=== PATIENT | female | born 1950 | race American Indian/Alaskan Native ===

== ENCOUNTER 2018-11-07 06:43 | Day surgery (SDC) | payer MEDICARE ==
[2018-11-07 07:20] VITALS: BMI 31.8
[2018-11-07 07:37] VITALS: O2SAT 98
[2018-11-07] MEDS ORDERED: Propofol 10 mg/ml Inj (20 ML) ONE ×2 (08:41→09:22)
[2018-11-07] MEDS ORDERED: Lactated Ringer's 1,000 ML IV ONE ×2 (08:50)
[2018-11-07 09:49] VITALS: TEMP 97.7
[2018-11-07 10:22] VITALS: RESP 18
[2018-11-07 10:24] VITALS: BP 132/75; PULSE 73
== END 2018-11-07 12:11 | disposition home or self-care (01) ==
LOC: C.ENDO 06:43
PROVIDERS: ATTEND Internal Medicine Gastroenterology
DX: Z12.11 Encounter for screening for malignant neoplasm of colon (principal); D12.2 Benign neoplasm of ascending colon; D12.7 Benign neoplasm of rectosigmoid junction; K64.8 Other hemorrhoids
CPT/HCPCS: 45380; 82948; 88305; J2001; J2704; J7120

== ENCOUNTER 2018-12-06 13:14 | Observation (INO) | payer MEDICARE ==
[2018-12-06 13:14] VITALS: BMI 31.8
--- NOTE | 2018-12-06 14:07 | C.PDOC ---
History Of Present Illness 68 y/o F p/w chest pain x 1 month, worse with exertion, gradually worsening and lasting longer at a time. Reports had outpatient stress test and EKG which were abnormal. Denies fever, cough, dyspnea. Reports associated palpitations. PMD [place] Time Seen by Provider: 12/06/18 14:04 Chief Complaint (Nursing): Chest Pain Past Medical History Vital Signs: Last Vital Signs Temp 98.4 F 12/06/18 13:22 Pulse 91 H 12/06/18 13:22 Resp 18 12/06/18 13:22 BP 197/91 H 12/06/18 13:22 Pulse Ox 97 12/06/18 13:22 - Medical History PMH: Arthritis, Asthma, HTN Denies: Chronic Kidney Disease Surgical History: Endoscopy Family History: States: No Known Family Hx - Social History Hx Alcohol Use: No Hx Substance Use: No - Immunization History Hx Tetanus Toxoid Vaccination: No Hx Influenza Vaccination: No Hx Pneumococcal Vaccination: No Review Of Systems Except As Marked, All Systems Reviewed And Found Negative. Constitutional: Negative for: Fever Respiratory: Negative for: Shortness of Breath Physical Exam - Physical Exam Additional Physical Exam Comments: Constitutional: No acute distress. Head: Normocephalic. Atraumatic. Eyes: PERRL. ENT: Moist mucous membranes. Neck: Supple. Cardiovascular: Regular rate. Radial pulse 2+ bilaterally. Chest: No tenderness. Respiratory: Clear to auscultation bilaterally. GI: Soft. Nontender. Nondistended. Back: No CVA tenderness. Musculoskeletal: No tenderness or swelling of extremities. Skin: No rash. Neurologic: Alert, no focal deficit. ED Course And Treatment - Laboratory Results Result Diagrams: 12/06/18 14:57 12/06/18 14:57 O2 Sat by Pulse Oximetry: 97 Pulse Ox Interpretation: Normal Medical Decision Making Medical Decision Making: EKG: Normal sinus rhythm at 94 bpm, T wave inversions in the anterior, lateral and inferior leads, No ST elevations Patient allergic to aspirin. CXR No active pulmonary disease. Dr. Day accepts patient to hospitalist service. Disposition - Disposition Disposition: HOSPITALIZED Disposition Time: 16:00 Condition: FAIR - POA Core Measure Indicators: Chest Pain - Clinical Impression Clinical Impression: Chest pain
[2018-12-06 15:00] LABS: BASO # 0.1 K/uL (0.0-0.2); BASO % 0.8 % (0.0-2.0); EOS # 0.1 K/uL (0.0-0.7); EOS % 0.9 % (0.0-4.0); HEMOGLOBIN 11.5 g/dL (11.0-16.0); LYMPH # 2.3 K/uL (1.0-4.3); LYMPH % 34.6 % (20.0-40.0); MEAN CELL VOLUME 85.2 fL (81.0-99.0); MEAN CORPUSCULAR HEMOGLOBIN 26.9 pg (27.0-31.0); MEAN CORPUSCULAR HGB CONC 31.5 g/dL (33.0-37.0); MEAN PLATELET VOLUME 9.6 fL (7.2-11.7); MONO # 0.4 K/uL (0.0-0.8); MONO % 5.5 % (0.0-10.0); NEUT # 3.8 K/uL (1.8-7.0); NEUT % 58.2 % (50.0-75.0); NRBC % 0.1 % (0.0-2.0); RBC 4.27 Mil/uL (3.80-5.20); RED CELL DISTRIBUTION WIDTH 14.2 % (11.5-14.5); WHITE BLOOD COUNT 6.6 K/uL (4.8-10.8)
[2018-12-06 15:12] LABS: ALB/GLOB RATIO 1.5 (1.0-2.1); ALBUMIN 4.4 g/dL (3.5-5.0); ALT/SGPT 44 U/L (9-52); AST/SGOT 51 U/L (14-36); BLOOD UREA NITROGEN 10 mg/dL (7-17); CALCIUM 9.1 mg/dl (8.6-10.4); GFR NON-AFRICAN AMERICAN > 60
[2018-12-06 15:25] LABS: CK-MB 1.44 ng/mL (0.0-3.38)
--- NOTE | 2018-12-06 15:29 | RAD ---
Date of service: 12/06/2018 HISTORY: angina COMPARISON: No prior. FINDINGS: LUNGS: The lungs are well inflated and clear. PLEURA: No pleural effusions or pneumothorax. CARDIOVASCULAR: The heart is normal in size. No aortic atherosclerotic calcifications present. OSSEOUS STRUCTURES: Within normal limits for the patient's age. VISUALIZED UPPER ABDOMEN: Normal. OTHER FINDINGS: None. IMPRESSION: No active pulmonary disease.
--- NOTE | 2018-12-06 15:58 | CP.PCM.HP ---
<Graham Rice - Last Filed: 12/06/18 17:14> History of Present Illness - History of Present Illness History of Present Illness: PGY-1 History and Physical [address]. Day Patient is a 68 year old female with past medical history of HTN, DM, arthritis presenting to ED from Dr. Cooney's office with chest pain that has been gradually worsening over the course of 1 month. Chest pain comes and goes, worsens with exertion. Patient states it begins in the R axillary region, worsens and radiat es up with exertion, eventually traveling to chest where she feels substernal pressure. Sometimes, there is pressure sensation up to neck as well. Of note, patient states she has had outpatient cardiac workup with Dr. Cooney this past month including EKG, echo, and pharm stress test which were abnormal. She was instructed by Dr. Cooney to come to the ED for further care. She endorses substernal chest pressure currently that is mild, in no acute distress. She also endorses headache and has history of lightheadedess and pre-syncope but denies any falls or trauma. No fevers/chills, acute sob, cough, abdominal pain, n/v/d/c. 12 pt ROS reviewed and otherwise negative. PMHx: HTN, DM, arthritis PSHx: cardiac workup outpatient--pharm stress test, echo abnormal; colonoscopy with polyp removal (10/2017), R lipoma removal, carpal tunnel surgery R wrist Allergies: ASA (hives), PCN (hives) Home Meds: Losartan, metformin, 2nd DM med she cannot recall Social Hx: denies alcohol, tobacco, illicit drug use. Lives with daughter in apartment unit. Family Hx: Mother-HTN; Father-cancer PMD: Dr. Holland Cardio: Dr. Cooney Present on Admission - Present on Admission Any Indicators Present on Admission: No Review of Systems - Review of Systems All systems: reviewed and no additional remarkable complaints except Review of Systems: as per HPI Past Patient History - Past Medical History & Family History Past Medical History?: Yes - Past Social History Smoking Status: Never Smoked - CARDIAC Hx Hypertension: Yes - PULMONARY Hx Asthma: Yes - NEUROLOGICAL Hx Neurological Disorder: No - HEENT Hx HEENT Problems: Yes Hx Cataracts: Yes - RENAL Hx Chronic Kidney Disease: No - ENDOCRINE/METABOLIC Hx Endocrine Disorders: Yes Hx Diabetes Mellitus Type 2: Yes - HEMATOLOGICAL/ONCOLOGICAL Hx Blood Disorders: Yes Hx Cancer: Yes (OVARIAN ) Other/Comment: LYMPHOMA - INTEGUMENTARY Hx Dermatological Problems: No - MUSCULOSKELETAL/RHEUMATOLOGICAL Hx Arthritis: Yes - GASTROINTESTINAL Hx Gastrointestinal Disorders: Yes Hx Ulcer: Yes - GENITOURINARY/GYNECOLOGICAL Hx Genitourinary Disorders: No - PSYCHIATRIC Hx Substance Use: No - SURGICAL HISTORY Hx Surgeries: Yes Hx Hysterectomy: Yes Other/Comment: LUMPECTOMY RT BREAST, CARPAL TUNNEL ,LYMPHOMA RT HAND. ovarian cancer removed - ANESTHESIA Hx Anesthesia: Yes Hx Anesthesia Reactions: No Hx Malignant Hyperthermia: No Meds Allergies/Adverse Reactions: Allergies Allergy/AdvReac Type Severity Reaction Status Date / Time aspirin Allergy RASH Verified 12/06/18 13:26 FISH Allergy Verified 12/06/18 13:26 peas Allergy Verified 12/06/18 13:26 Penicillins Allergy REDNESS Verified 12/06/18 13:26 pineapple Allergy Verified 12/06/18 13:26 shellfish derived Allergy Verified 12/06/18 13:26 Physical Exam - Constitutional Appears: Non-toxic, No Acute Distress - Head Exam Head Exam: ATRAUMATIC, NORMAL INSPECTION, NORMOCEPHALIC - Eye Exam Eye Exam: EOMI, Normal appearance, PERRL Pupil Exam: NORMAL ACCOMODATION - ENT Exam ENT Exam: Mucous Membranes Moist, Normal Exam - Neck Exam Neck exam: Positive for: Full Rom, Normal Inspection. Negative for: Tenderness - Respiratory Exam Respiratory Exam: Clear to Auscultation Bilateral, NORMAL BREATHING PATTERN. absent: Accessory Muscle Use, Rales, Rhonchi, Wheezes, Respiratory Distress, Stridor - Cardiovascular Exam Cardiovascular Exam: Tachycardia, +S1, +S2 - GI/Abdominal Exam GI & Abdominal Exam: Normal Bowel Sounds, Soft. absent: Distended, Firm, Gua rding, Rebound, Rigid, Tenderness - Extremities Exam Extremities exam: Positive for: normal capillary refill, normal inspection, pedal pulses present. Negative for: calf tenderness, pedal edema - Back Exam Back exam: NORMAL INSPECTION - Neurological Exam Neurological exam: Alert, Oriented x3 - Psychiatric Exam Psychiatric exam: Anxious, Normal Affect - Skin Skin Exam: Dry, Intact, Normal Color, Warm Results - Vital Signs Recent Vital Signs: Last Vital Signs Temp 98.4 F 12/06/18 13:22 Pulse 91 H 12/06/18 13:22 Resp 18 12/06/18 13:22 BP 197/91 H 12/06/18 13:22 Pulse Ox 97 12/06/18 15:29 - Labs Result Diagrams: 12/06/18 14:57 12/06/18 14:57 Labs: Laboratory Results - last 24 hr 12/06/18 12/06/18 14:57 14:57 WBC 6.6 RBC 4.27 Hgb 11.5 Hct 36.4 MCV 85.2 MCH 26.9 L MCHC 31.5 L RDW 14.2 Plt Count 302 MPV 9.6 Neut % (Auto) 58.2 Lymph % (Auto) 34.6 [place] % (Auto) 5.5 Eos % (Auto) 0.9 Baso % (Auto) 0.8 Neut # (Auto) 3.8 Lymph # (Auto) 2.3 [place] # (Auto) 0.4 Eos # (Auto) 0.1 Baso # (Auto) 0.1 Sodium 140 Potassium 3.3 L Chloride 104 Carbon Dioxide 28 Anion Gap 11 BUN 10 Creatinine 0.6 L Est GFR ( Amer) > 60 Est GFR (Non-Af Amer) > 60 Random Glucose 88 Calcium 9.1 Total Bilirubin 0.4 AST 51 H ALT 44 Alkaline Phosphatase 73 Total Creatine Kinase 251 H CK-MB (Mass) 1.44 Troponin I < 0.0120 Total Protein 7.3 Albumin 4.4 Globulin 2.9 Albumin/Globulin Ratio 1.5 Assessment & Plan - Assessment and Plan (Free Text) Assessment: 68 year old female with pmhx of HTN, DM, recent abnormal outpatient cardiac workup brought to ED from Dr. Cooney's office for gradual worsening chest pain, r/o ACS. Plan: Stable angina Chest pain r/o ACS -trop x1 negative -f/u HANNAH panel -EKG: NSR 96 bpm with T wave inversions in inferior, anterolateral leads -f/u repeat EKG -lipid panel -thyroid panel -A1C HTN -BP 160/86 -Losartan 25 mg PO daily -continue to monitor DM -hold home meds -f/u A1C -ISS medium -accuchecks ACHS -hypoglycemic protocol PPx, Diet, Disposition -DVT ppx: scds -GI ppx: not indicated -Diet: HHD, NPO after MN for cardiac cath -PT on board Case discussed with Dr. Barb Rice DO, PGY-1 <Eliseo Day - Last Filed: 12/06/18 19:07> Results - Vital Signs Recent Vital Signs: Last Vital Signs Temp 98.2 F 12/06/18 17:45 Pulse 85 12/06/18 17:45 Resp 20 12/06/18 17:45 BP 185/90 H 12/06/18 17:45 Pulse Ox 96 12/06/18 17:45 - Labs Result Diagrams: 12/06/18 14:57 12/06/18 14:57 Labs: Laboratory Results - last 24 hr 12/06/18 12/06/18 12/06/18 14:57 14:57 16:50 WBC 6.6 RBC 4.27 Hgb 11.5 Hct 36.4 MCV 85.2 MCH 26.9 L MCHC 31.5 L RDW 14.2 Plt Count 302 MPV 9.6 Neut % (Auto) 58.2 Lymph % (Auto) 34.6 [place] % (Auto) 5.5 Eos % (Auto) 0.9 Baso % (Auto) 0.8 Neut # (Auto) 3.8 Lymph # (Auto) 2.3 [place] # (Auto) 0.4 Eos # (Auto) 0.1 Baso # (Auto) 0.1 Sodium 140 Potassium 3.3 L Chloride 104 Carbon Dioxide 28 Anion Gap 11 BUN 10 Creatinine 0.6 L Est GFR ( Amer) > 60 Est GFR (Non-Af Amer) > 60 Random Glucose 88 Calcium 9.1 Total Bilirubin 0.4 AST 51 H ALT 44 Alkaline Phosphatase 73 Total Creatine Kinase 251 H 232 H CK-MB (Mass) 1.44 1.27 Troponin I < 0.0120 < 0.0120 Total Protein 7.3 Albumin 4.4 Globulin 2.9 Albumin/Globulin Ratio 1.5 Attending/Attestation - Attestation I have personally seen and examined this patient.: Yes I have fully participated in the care of the patient.: Yes I have reviewed all pertinent clinical information: Yes Notes (Text): Patient seen and examined with the resident, agree with above. Stable angina with abnormal outpatient pharmacological stress test and thus transferred from Dr Cooney's office for admission and potential cardiac cath Negative trop. EKG changes with TWI in the lateral leads Will continue with medical management as above. Allergic to ASA (hives) Plavix/statin/arb for now. Further recommendations as per Cardio.
[2018-12-06] MEDS ORDERED: Potassium Chloride 20 mEq ER Tab PO ONE ×2 (16:42→16:45)
[2018-12-06] MEDS ORDERED: Dextrose 50% SYRINGE Inj (50 ml) IV PRN (17:02)
[2018-12-06] MEDS ORDERED: Glucagon Recombinant 1 mg Inj IM PRN (17:02)
[2018-12-06 17:23] LABS: CK-MB 1.27 ng/mL (0.0-3.38)
[2018-12-06] MEDS: (Novolin R) Insulin Human Regular 100 units/ml vial SC SCH (22:22)
[2018-12-07 06:49] LABS: BASO % 0.4 % (0.0-2.0); EOS # 0.1 K/uL (0.0-0.7); EOS % 1.6 % (0.0-4.0); LYMPH # 1.7 K/uL (1.0-4.3); LYMPH % 35.8 % (20.0-40.0); MEAN CELL VOLUME 85.8 fL (81.0-99.0); MEAN CORPUSCULAR HEMOGLOBIN 27.5 pg (27.0-31.0); MEAN PLATELET VOLUME 9.9 fL (7.2-11.7); MONO # 0.3 K/uL (0.0-0.8); MONO % 6.5 % (0.0-10.0); NEUT # 2.7 K/uL (1.8-7.0); NEUT % 55.7 % (50.0-75.0); RBC 4.37 Mil/uL (3.80-5.20); RED CELL DISTRIBUTION WIDTH 14.5 % (11.5-14.5); WHITE BLOOD COUNT 4.9 K/uL (4.8-10.8)
[2018-12-07 07:04] LABS: ALB/GLOB RATIO 1.5 (1.0-2.1); ALT/SGPT 57 U/L (9-52); AST/SGOT 58 U/L (14-36); BLOOD UREA NITROGEN 8 mg/dL (7-17); CALCIUM 8.8 mg/dl (8.6-10.4); GFR NON-AFRICAN AMERICAN > 60
[2018-12-07 07:14] LABS: CK-MB 0.73 ng/mL (0.0-3.38)
[2018-12-07] MEDS: (Novolin R) Insulin Human Regular 100 units/ml vial SC SCH ×4 (07:36→21:54)
[2018-12-07] MEDS: Magnesium Sulfate 1 gm in D5W 1 GM/100 ML BAG IVPB SCH ×2 (11:20→12:07)
--- NOTE | 2018-12-07 14:22 | CP.PCM.PN ---
<Ortiz Carballo - Last Filed: 12/07/18 14:22> Subjective - Date & Time of Evaluation Date of Evaluation: 12/07/18 Time of Evaluation: 14:00 - Subjective Subjective: Progress note. Attending: Dr. Kuhn Pt seen and examined at bedside. No acute distress. No fevers, chills, vomiting, diarrhea. Chest pain present but better. Possible cath today or tomorrow. Objective - Vital Signs/Intake and Output Vital Signs (last 24 hours): Temp Pulse Resp BP Pulse Ox 98.0 F 73 20 178/92 H 97 12/07/18 07:00 12/07/18 11:58 12/07/18 07:00 12/07/18 07:00 12/07/18 07:00 Intake and Output: 12/07/18 12/07/18 06:59 18:59 Intake Total 0 Balance 0 - Medications Medications: Current Medications Acetaminophen (Tylenol 325mg Tab) 650 mg PO Q6 PRN PRN Reason: Headache Carvedilol (Coreg) 6.25 mg PO BID [facility] Clopidogrel Bisulfate (Plavix) 75 mg PO DAILY [facility] Last Admin: 12/07/18 09:13 Dose: 75 mg Dextrose (Dextrose 50% Inj) 0 ml IV STAT PRN; Protocol PRN Reason: Hypoglycemia Protocol Dextrose (Glutose 15) 0 gm PO ONCE PRN; Protocol PRN Reason: Hypoglycemia Protocol Glucagon (Glucagen Diagnostic Kit) 0 mg IM STAT PRN; Protocol PRN Reason: Hypoglycemia Protocol Dextrose (Dextrose 5% In Water 1000 Ml) 1,000 mls @ 0 mls/hr IV .Q0M PRN; Protocol PRN Reason: Hypoglycemia Protocol Insulin Human Regular (Novolin R) 0 unit SC ACHS [facility]; Protocol Last Admin: 12/07/18 11:33 Dose: Not Given Losartan Potassium (Cozaar) 50 mg PO DAILY [facility] Last Admin: 12/07/18 11:20 Dose: 50 mg Rosuvastatin Calcium (Crestor) 10 mg PO HS [facility] Last Admin: 12/06/18 21:54 Dose: 10 mg - Labs Labs: 12/07/18 06:46 12/07/18 06:46 - Constitutional Appears: Non-toxic, No Acute Distress - Head Exam Head Exam: ATRAUMATIC, NORMAL INSPECTION, NORMOCEPHALIC - Eye Exam Eye Exam: EOMI - ENT Exam ENT Exam: Mucous Membranes Moist - Neck Exam Neck Exam: Full ROM, Normal Inspection - Respiratory Exam Respiratory Exam: absent: Respiratory Distress - Cardiovascular Exam Cardiovascular Exam: +S1, +S2 - GI/Abdominal Exam GI & Abdominal Exam: Soft, Normal Bowel Sounds. absent: Tenderness - Extremities Exam Extremities Exam: Full ROM, Normal Inspection - Neurological Exam Neurological Exam: Alert, Awake, Oriented x3 - Psychiatric Exam Psychiatric exam: Normal Affect, Normal Mood - Skin Skin Exam: Dry, Intact, Normal Color, Warm Assessment and Plan - Assessment and Plan (Free Text) Assessment: This is a 68 year old female with past medical hx of HTN, DM, recent abnormal outpatient cardiac workup sent into ER from Dr. Cooney's office for gradual worsening chest pain, r/o ACS. Unstable angina/ Chest pain r/o ACS -trop negative -EKG: NSR 96 bpm with T wave inversions in inferior, anterolateral leads -f/u repeat EKG -lipid panel -thyroid panel -A1C -add coreg bid -cardiology consult. Dr. Cooney. recs appreciated. HTN -Losartan 25 mg PO daily>>> increased to 50 mg daily -continue to monitor DM -hold home meds -f/u A1C -ISS medium -accuchecks ACHS -hypoglycemic protocol GI/DVT ppx -DVT ppx: scds -GI ppx: not indicated -PT on board Dispo: will discuss with Dr. Cooney, plans for possible cardiac cath discussed with Dr. Kuhn <Jose Kuhn - Last Filed: 12/08/18 07:10> Objective - Vital Signs/Intake and Output Vital Signs (last 24 hours): Temp Pulse Resp BP Pulse Ox 98.1 F 88 20 147/83 95 12/07/18 23:00 12/07/18 23:35 12/07/18 23:00 12/07/18 23:00 12/08/18 04:00 - Medications Medications: Current Medications Acetaminophen (Tylenol 325mg Tab) 650 mg PO Q6 PRN PRN Reason: Headache Carvedilol (Coreg) 6.25 mg PO BID [facility] Last Admin: 12/07/18 17:45 Dose: 6.25 mg Clopidogrel Bisulfate (Plavix) 75 mg PO DAILY [facility] Last Admin: 12/07/18 09:13 Dose: 75 mg Dextrose (Dextrose 50% Inj) 0 ml IV STAT PRN; Protocol PRN Reason: Hypoglycemia Protocol Dextrose (Glutose 15) 0 gm PO ONCE PRN; Protocol PRN Reason: Hypoglycemia Protocol Glucagon (Glucagen Diagnostic Kit) 0 mg IM STAT PRN; Protocol PRN Reason: Hypoglycemia Protocol Dextrose (Dextrose 5% In Water 1000 Ml) 1,000 mls @ 0 mls/hr IV .Q0M PRN; Protocol PRN Reason: Hypoglycemia Protocol Insulin Human Regular (Novolin R) 0 unit SC ACHS [facility]; Protocol Last Admin: 12/07/18 21:54 Dose: Not Given Losartan Potassium (Cozaar) 50 mg PO DAILY [facility] Last Admin: 12/07/18 11:20 Dose: 50 mg Rosuvastatin Calcium (Crestor) 10 mg PO HS [facility] Last Admin: 12/07/18 21:46 Dose: 10 mg - Labs Labs: 12/07/18 06:46 12/07/18 06:46 Attending/Attestation - Attestation I have personally seen and examined this patient.: Yes I have fully participated in the care of the patient.: Yes I have reviewed all pertinent clinical information, including history, physical exam and plan: Yes Notes (Text): Medical attending: Patient was seen and examined by me with the medical residents Patient was not in any acute distress At this moment we are pending further evaluation by cardiology as it appears she may need cardiac catherization. When we saw her, her symptoms had abated. Jose Kuhn
--- NOTE | 2018-12-07 20:54 | CP.PCM.CON ---
History of Present Illness - History of Present Illness History of Present Illness: CC: Unstable angina Patient is a 68 year old female with past medical history of HTN, DM, arthritis presenting to ED from my office with chest pain that has been gradually worsening over the course of 1 month. Chest pain comes and goes, worsens with exertion. Patient states it begins in the R axillary region, worsens and radiates up with exertion, eventually traveling to chest where she feels substernal pressure. Sometimes, there is pressure sensation up to neck as well. Of note, patient states she has had outpatient cardiac workup with me this past month including EKG, echo, and pharm stress test which were abnormal. She was i nstructed by me to come to the ED for further care. She endorses substernal chest pressure currently that is mild, in no acute distress. She also endorses headache and has history of lightheadedess and pre-syncope but denies any falls or trauma. No fevers/chills, acute sob, cough, abdominal pain, n/v/d/c. 12 pt ROS reviewed and otherwise negative. PMHx: HTN, DM, arthritis PSHx: cardiac workup outpatient--pharm stress test, echo abnormal; colonoscopy with polyp removal (10/2017), R lipoma removal, carpal tunnel surgery R wrist Allergies: ASA (hives), PCN (hives) Home Meds: Losartan, metformin, 2nd DM med she cannot recall Social Hx: denies alcohol, tobacco, illicit drug use. Lives with daughter in apartment unit. Family Hx: Mother-HTN; Father-cancer PMD: Dr. Holland Present on Admission - Present on Admission Any Indicators Present on Admission: No Review of Systems - Review of Systems All systems: reviewed and no additional remarkable complaints except Review of Systems: as per HPI Physical Exam - Constitutional Appears: Non-toxic, No Acute Distress - Head Exam Head Exam: ATRAUMATIC, NORMAL INSPECTION, NORMOCEPHALIC - Eye Exam Eye Exam: EOMI, Normal appearance, PERRL Pupil Exam: NORMAL ACCOMODATION - ENT Exam ENT Exam: Mucous Membranes Moist, Normal Exam - Neck Exam Neck exam: Positive for: Full Rom, Normal Inspection. Negative for: Tenderness - Respiratory Exam Respiratory Exam: Clear to Auscultation Bilateral, NORMAL BREATHING PATTERN. absent: Accessory Muscle Use, Rales, Rhonchi, Wheezes, Respiratory Distress, Stridor - Cardiovascular Exam Cardiovascular Exam: Tachycardia, +S1, +S2 - GI/Abdominal Exam GI & Abdominal Exam: Normal Bowel Sounds, Soft. absent: Distended, Firm, Guarding, Rebound, Rigid, Tenderness - Extremities Exam Extremities exam: Positive for: normal capillary refill, normal inspection, pedal pulses present. Negative for: calf tenderness, pedal edema - Back Exam Back exam: NORMAL INSPECTION - Neurological Exam Neurological exam: Alert, Oriented x3 - Psychiatric Exam Psychiatric exam: Anxious, Normal Affect - Skin Skin Exam: Dry, Intact, Normal Color, Warm Assessment & Plan - Assessment and Plan (Free Text) Assessment: 68 year old female with pmhx of HTN, DM, recent abnormal outpatient cardiac workup brought to ED from Dr. Cooney's office for gradual worsening chest pain, r/o ACS. Plan: Stable angina Chest pain r/o ACS -trop x1 negative -f/u HANNAH panel -EKG: NSR 96 bpm with T wave inversions in inferior, anterolateral leads -f/u repeat EKG -lipid panel -thyroid panel -A1C Cardiac cath Sunday 7am HTN -BP 160/86 -Losartan 25 mg PO daily -continue to monitor DM -hold home meds -f/u A1C -ISS medium -accuchecks ACHS -hypoglycemic protocol PPx, Diet, Disposition -DVT ppx: scds -Diet: HHD, -PT on board Past Patient History - Past Medical History & Family History Past Medical History?: Yes - Past Social History Smoking Status: Never Smoked - CARDIAC Hx Hypertension: Yes - PULMONARY Hx Asthma: Yes - NEUROLOGICAL Hx Neurological Disorder: No - HEENT Hx HEENT Problems: Yes Hx Cataracts: Yes - RENAL Hx Chronic Kidney Disease: No - ENDOCRINE/METABOLIC Hx Endocrine Disorders: Yes Hx Diabetes Mellitus Type 2: Yes - HEMATOLOGICAL/ONCOLOGICAL Hx Blood Disorders: Yes Hx Cancer: Yes (OVARIAN ) Other/Comment: LYMPHOMA - INTEGUMENTARY Hx Dermatological Problems: No - MUSCULOSKELETAL/RHEUMATOLOGICAL Hx Arthritis: Yes - GASTROINTESTINAL Hx Gastrointestinal Disorders: Yes Hx Ulcer: Yes - GENITOURINARY/GYNECOLOGICAL Hx Genitourinary Disorders: No - PSYCHIATRIC Hx Substance Use: No - SURGICAL HISTORY Hx Surgeries: Yes Hx Hysterectomy: Yes Other/Comment: LUMPECTOMY RT BREAST, CARPAL TUNNEL ,LYMPHOMA RT HAND. ovarian cancer removed - ANESTHESIA Hx Anesthesia: Yes Hx Anesthesia Reactions: No Hx Malignant Hyperthermia: No Meds Allergies/Adverse Reactions: Allergies Allergy/AdvReac Type Severity Reaction Status Date / Time aspirin Allergy RASH Verified 12/06/18 13:26 FISH Allergy Verified 12/06/18 13:26 peas Allergy Verified 12/06/18 13:26 Penicillins Allergy REDNESS Verified 12/06/18 13:26 pineapple Allergy Verified 12/06/18 13:26 shellfish derived Allergy Verified 12/06/18 13:26 - Medications Medications: Current Medications Acetaminophen (Tylenol 325mg Tab) 650 mg PO Q6 PRN PRN Reason: Headache Carvedilol (Coreg) 6.25 mg PO BID [facility] Last Admin: 12/07/18 17:45 Dose: 6.25 mg Clopidogrel Bisulfate (Plavix) 75 mg PO DAILY [facility] Last Admin: 12/07/18 09:13 Dose: 75 mg Dextrose (Dextrose 50% Inj) 0 ml IV STAT PRN; Protocol PRN Reason: Hypoglycemia Protocol Dextrose (Glutose 15) 0 gm PO ONCE PRN; Protocol PRN Reason: Hypoglycemia Protocol Glucagon (Glucagen Diagnostic Kit) 0 mg IM STAT PRN; Protocol PRN Reason: Hypoglycemia Protocol Dextrose (Dextrose 5% In Water 1000 Ml) 1,000 mls @ 0 mls/hr IV .Q0M PRN; Protocol PRN Reason: Hypoglycemia Protocol Insulin Human Regular (Novolin R) 0 unit SC [facility]; Protocol Last Admin: 12/07/18 17:17 Dose: Not Given Losartan Potassium (Cozaar) 50 mg PO DAILY [facility] Last Admin: 12/07/18 11:20 Dose: 50 mg Rosuvastatin Calcium (Crestor) 10 mg PO [facility] Last Admin: 12/06/18 21:54 Dose: 10 mg Results - Vital Signs Recent Vital Signs: Last Vital Signs Temp 98.2 F 12/07/18 15:00 Pulse 90 12/07/18 16:00 Resp 20 12/07/18 15:00 BP 173/84 H 12/07/18 15:00 Pulse Ox 95 12/07/18 15:00 - Labs Result Diagrams: 12/07/18 06:46 12/07/18 06:46 Labs: Laboratory Results - last 24 hr 12/06/18 12/06/18 12/06/18 20:59 22:13 22:13 WBC RBC Hgb Hct MCV MCH MCHC RDW Plt Count MPV Neut % (Auto) Lymph % (Auto) Falls % (Auto) Eos % (Auto) Baso % (Auto) Neut # (Auto) Lymph # (Auto) Falls # (Auto) Eos # (Auto) Baso # (Auto) Sodium Potassium Chloride Carbon Dioxide Anion Gap BUN Creatinine Est GFR ( Amer) Est GFR (Non-Af Amer) POC Glucose (mg/dL) 145 H Random Glucose Hemoglobin A1c Calcium Phosphorus Magnesium Total Bilirubin AST ALT Alkaline Phosphatase Total Creatine Kinase 222 H CK-MB (Mass) 1.00 Troponin I < 0.0120 Total Protein Albumin Globulin Albumin/Globulin Ratio Triglycerides 216 H Cholesterol 123 LDL Cholesterol Direct 85 HDL Cholesterol 29 L Free T4 TSH 3rd Generation 5.11 H 12/06/18 12/06/18 12/07/18 22:13 22:17 06:23 WBC RBC Hgb Hct MCV MCH MCHC RDW Plt Count MPV Neut % (Auto) Lymph % (Auto) Falls % (Auto) Eos % (Auto) Baso % (Auto) Neut # (Auto) Lymph # (Auto) Falls # (Auto) Eos # (Auto) Baso # (Auto) Sodium Potassium Chloride Carbon Dioxide Anion Gap BUN Creatinine Est GFR ( Amer) Est GFR (Non-Af Amer) POC Glucose (mg/dL) 193 H Random Glucose Hemoglobin A1c 7.4 H Calcium Phosphorus Magnesium Total Bilirubin AST ALT Alkaline Phosphatase Total Creatine Kinase CK-MB (Mass) Troponin I Total Protein Albumin Globulin Albumin/Globulin Ratio Triglycerides Cholesterol LDL Cholesterol Direct HDL Cholesterol Free T4 1.08 TSH 3rd Generation 12/07/18 12/07/18 12/07/18 06:46 06:46 11:00 WBC 4.9 RBC 4.37 Hgb 12.0 Hct 37.5 MCV 85.8 MCH 27.5 MCHC 32.0 L RDW 14.5 Plt Count 271 MPV 9.9 Neut % (Auto) 55.7 Lymph % (Auto) 35.8 Falls % (Auto) 6.5 Eos % (Auto) 1.6 Baso % (Auto) 0.4 Neut # (Auto) 2.7 Lymph # (Auto) 1.7 Falls # (Auto) 0.3 Eos # (Auto) 0.1 Baso # (Auto) 0.0 Sodium 139 Potassium 3.2 L Chloride 105 Carbon Dioxide 27 Anion Gap 11 BUN 8 Creatinine 0.6 L Est GFR ( Amer) > 60 Est GFR (Non-Af Amer) > 60 POC Glucose (mg/dL) 142 H Random Glucose 182 H D Hemoglobin A1c Calcium 8.8 Phosphorus 4.3 Magnesium 1.5 L Total Bilirubin 0.5 AST 58 H ALT 57 H D Alkaline Phosphatase 73 Total Creatine Kinase 186 H CK-MB (Mass) 0.73 Troponin I < 0.0120 Total Protein 6.7 Albumin 4.0 Globulin 2.7 Albumin/Globulin Ratio 1.5 Triglycerides Cholesterol LDL Cholesterol Direct HDL Cholesterol Free T4 TSH 3rd Generation 12/07/18 16:13 WBC RBC Hgb Hct MCV MCH MCHC RDW Plt Count MPV Neut % (Auto) Lymph % (Auto) Falls % (Auto) Eos % (Auto) Baso % (Auto) Neut # (Auto) Lymph # (Auto) Falls # (Auto) Eos # (Auto) Baso # (Auto) Sodium Potassium Chloride Carbon Dioxide Anion Gap BUN Creatinine Est GFR ( Amer) Est GFR (Non-Af Amer) POC Glucose (mg/dL) 145 H Random Glucose Hemoglobin A1c Calcium Phosphorus Magnesium Total Bilirubin AST ALT Alkaline Phosphatase Total Creatine Kinase CK-MB (Mass) Troponin I Total Protein Albumin Globulin Albumin/Globulin Ratio Triglycerides Cholesterol LDL Cholesterol Direct HDL Cholesterol Free T4 TSH 3rd Generation
[2018-12-08] MEDS: (Novolin R) Insulin Human Regular 100 units/ml vial SC SCH ×4 (08:31→21:36)
[2018-12-08 08:32] LABS: BASO % 0.3 % (0.0-2.0); EOS % 0.9 % (0.0-4.0); HEMOGLOBIN 11.6 g/dL (11.0-16.0); LYMPH # 1.9 K/uL (1.0-4.3); LYMPH % 36.9 % (20.0-40.0); MEAN CORPUSCULAR HEMOGLOBIN 27.7 pg (27.0-31.0); MEAN CORPUSCULAR HGB CONC 32.3 g/dL (33.0-37.0); MEAN PLATELET VOLUME 9.6 fL (7.2-11.7); MONO # 0.3 K/uL (0.0-0.8); MONO % 5.6 % (0.0-10.0); NEUT # 2.8 K/uL (1.8-7.0); NEUT % 56.3 % (50.0-75.0); NRBC % 0.1 % (0.0-2.0); RBC 4.18 Mil/uL (3.80-5.20)
[2018-12-08 09:19] LABS: ALB/GLOB RATIO 1.6 (1.0-2.1); ALBUMIN 4.1 g/dL (3.5-5.0); ALT/SGPT 48 U/L (9-52); AST/SGOT 49 U/L (14-36); BLOOD UREA NITROGEN 11 mg/dL (7-17); CALCIUM 8.4 mg/dl (8.6-10.4); GFR NON-AFRICAN AMERICAN > 60
--- NOTE | 2018-12-08 11:49 | CP.PCM.PN ---
<Ortiz Carballo - Last Filed: 12/08/18 11:51> Subjective - Date & Time of Evaluation Date of Evaluation: 12/08/18 Time of Evaluation: 11:45 - Subjective Subjective: Progress note. Attending: Dr. Kuhn Pt seen and examined at bedside. No acute distress. No fevers, chills, vomiting, diarrhea. Plan for cardiac cath tomorrow. Objective - Vital Signs/Intake and Output Vital Signs (last 24 hours): Temp Pulse Resp BP Pulse Ox 98.3 F 86 20 163/92 H 94 L 12/08/18 07:00 12/08/18 09:32 12/08/18 07:00 12/08/18 09:32 12/08/18 07:00 - Medications Medications: Current Medications Acetaminophen (Tylenol 325mg Tab) 650 mg PO Q6 PRN PRN Reason: Headache Carvedilol (Coreg) 6.25 mg PO BID [facility] Last Admin: 12/08/18 09:31 Dose: 6.25 mg Clopidogrel Bisulfate (Plavix) 75 mg PO DAILY [facility] Last Admin: 12/08/18 09:31 Dose: 75 mg Dextrose (Dextrose 50% Inj) 0 ml IV STAT PRN; Protocol PRN Reason: Hypoglycemia Protocol Dextrose (Glutose 15) 0 gm PO ONCE PRN; Protocol PRN Reason: Hypoglycemia Protocol Glucagon (Glucagen Diagnostic Kit) 0 mg IM STAT PRN; Protocol PRN Reason: Hypoglycemia Protocol Dextrose (Dextrose 5% In Water 1000 Ml) 1,000 mls @ 0 mls/hr IV .Q0M PRN; Protocol PRN Reason: Hypoglycemia Protocol Insulin Human Regular (Novolin R) 0 unit SC ACHS [facility]; Protocol Last Admin: 12/08/18 08:31 Dose: 2 units Losartan Potassium (Cozaar) 50 mg PO DAILY [facility] Last Admin: 12/08/18 09:31 Dose: 50 mg Rosuvastatin Calcium (Crestor) 10 mg PO HS [facility] Last Admin: 12/07/18 21:46 Dose: 10 mg - Labs Labs: 12/08/18 08:26 12/08/18 08:26 - Constitutional Appears: Non-toxic, No Acute Distress - Head Exam Head Exam: ATRAUMATIC, NORMAL INSPECTION, NORMOCEPHALIC - Eye Exam Eye Exam: EOMI - ENT Exam ENT Exam: Mucous Membranes Moist - Neck Exam Neck Exam: Full ROM, Normal Inspection - Respiratory Exam Respiratory Exam: NORMAL BREATHING PATTERN. absent: Respiratory Distress - Cardiovascular Exam Cardiovascular Exam: +S1, +S2 - GI/Abdominal Exam GI & Abdominal Exam: Soft, Normal Bowel Sounds. absent: Tenderness - Extremities Exam Extremities Exam: Full ROM, Normal Inspection - Back Exam Back Exam: NORMAL INSPECTION - Neurological Exam Neurological Exam: Alert, Awake, CN II-XII Intact, Oriented x3 - Psychiatric Exam Psychiatric exam: Flat Affect - Skin Skin Exam: Dry, Intact, Normal Color, Warm Assessment and Plan - Assessment and Plan (Free Text) Assessment: This is a 68 year old female with past medical hx of HTN, DM, recent abnormal outpatient cardiac workup sent into ER from Dr. Cooney's office for gradual worsening chest pain, r/o ACS. Unstable angina/ Chest pain r/o ACS -trop negative x 4 -EKG: NSR 96 bpm with T wave inversions in inferior, anterolateral leads -lipid panel- LDL 85 -thyroid panel -A1C>> 7.4 -add coreg bid -cardiology consult. Dr. Cooney. recs appreciated. -plan for cardiac cath on sunday morning -NPO after midnight -added losartan 50 mg daily HTN -Losartan 25 mg PO daily>>> increased to 50 mg daily -continue to monitor DM -hold home meds -f/u A1C>>> 7.4 -ISS medium -accuchecks ACHS -hypoglycemic protocol GI/DVT ppx -DVT ppx: scds -GI ppx: not indicated -PT on board Dispo: plan for cardiac cath tomorrow morning discussed with Dr. Kuhn <Jose Kuhn - Last Filed: 12/08/18 19:22> Objective - Vital Signs/Intake and Output Vital Signs (last 24 hours): Temp Pulse Resp BP Pulse Ox 97.9 F 79 20 155/81 H 97 12/08/18 15:00 12/08/18 15:42 12/08/18 15:00 12/08/18 15:00 12/08/18 15:00 - Medications Medications: Current Medications Acetaminophen (Tylenol 325mg Tab) 650 mg PO Q6 PRN PRN Reason: Headache Carvedilol (Coreg) 6.25 mg PO BID [facility] Last Admin: 12/08/18 18:48 Dose: 6.25 mg Clopidogrel Bisulfate (Plavix) 75 mg PO DAILY [facility] Last Admin: 12/08/18 09:31 Dose: 75 mg Dextrose (Dextrose 50% Inj) 0 ml IV STAT PRN; Protocol PRN Reason: Hypoglycemia Protocol Dextrose (Glutose 15) 0 gm PO ONCE PRN; Protocol PRN Reason: Hypoglycemia Protocol Glucagon (Glucagen Diagnostic Kit) 0 mg IM STAT PRN; Protocol PRN Reason: Hypoglycemia Protocol Dextrose (Dextrose 5% In Water 1000 Ml) 1,000 mls @ 0 mls/hr IV .Q0M PRN; Prot ocol PRN Reason: Hypoglycemia Protocol Insulin Human Regular (Novolin R) 0 unit SC ACHS [facility]; Protocol Last Admin: 12/08/18 18:48 Dose: Not Given Losartan Potassium (Cozaar) 50 mg PO DAILY [facility] Last Admin: 12/08/18 09:31 Dose: 50 mg Rosuvastatin Calcium (Crestor) 10 mg PO HS [facility] Last Admin: 12/07/18 21:46 Dose: 10 mg - Labs Labs: 12/08/18 08:26 12/08/18 08:26 Attending/Attestation - Attestation I have personally seen and examined this patient.: Yes I have fully participated in the care of the patient.: Yes I have reviewed all pertinent clinical information, including history, physical exam and plan: Yes Notes (Text): 12/08/18 19:20 Medical attending: Patient was seen and examined by me. Agree with the above note by the resident The patient was able to walk in room on her own without problem. She reported no chest pain or palpitations, denied shortness of breath Cardiology is planning on cardiac cath sometime tomorrow morning. Jose Kuhn
--- NOTE | 2018-12-08 20:58 | CP.PCM.PN ---
Subjective - Date & Time of Evaluation Date of Evaluation: 12/08/18 Time of Evaluation: 09:30 - Subjective Subjective: Patient with no cardiac events Review of Systems - Review of Systems All systems: reviewed and no additional remarkable complaints except Review of Systems: as per HPI Physical Exam - Constitutional Appears: Non-toxic, No Acute Distress - Head Exam Head Exam: ATRAUMATIC, NORMAL INSPECTION, NORMOCEPHALIC - Eye Exam Eye Exam: EOMI, Normal appearance, PERRL Pupil Exam: NORMAL ACCOMODATION - ENT Exam ENT Exam: Mucous Membranes Moist, Normal Exam - Neck Exam Neck exam: Positive for: Full Rom, Normal Inspection. Negative for: Tenderness - Respiratory Exam Respiratory Exam: Clear to Auscultation Bilateral, NORMAL BREATHING PATTERN. absent: Accessory Muscle Use, Rales, Rhonchi, Wheezes, Respiratory Distress, Stridor - Cardiovascular Exam Cardiovascular Exam: Tachycardia, +S1, +S2 - GI/Abdominal Exam GI & Abdominal Exam: Normal Bowel Sounds, Soft. absent: Distended, Firm, Guarding, Rebound, Rigid, Tenderness - Extremities Exam Extremities exam: Positive for: normal capillary refill, normal inspection, pedal pulses present. Negative for: calf tenderness, pedal edema - Back Exam Back exam: NORMAL INSPECTION - Neurological Exam Neurological exam: Alert, Oriented x3 - Psychiatric Exam Psychiatric exam: Anxious, Normal Affect - Skin Skin Exam: Dry, Intact, Normal Color, Warm Assessment & Plan - Assessment and Plan (Free Text) Assessment: 68 year old female with pmhx of HTN, DM, recent abnormal outpatient cardiac workup brought to ED from Dr. Cooney's office for gradual worsening chest pain, r/o ACS. Plan: Stable angina Chest pain r/o ACS -trop x1 negative -f/u HANNAH panel -EKG: NSR 96 bpm with T wave inversions in inferior, anterolateral leads -f/u repeat EKG -lipid panel -thyroid panel -A1C Cardiac cath tomorrow 7am HTN -BP 160/86 -Losartan 25 mg PO daily -continue to monitor DM -hold home meds -f/u A1C -ISS medium -accuchecks ACHS -hypoglycemic protocol PPx, Diet, Disposition -DVT ppx: scds -Diet: HHD, -PT on board Objective - Vital Signs/Intake and Output Vital Signs (last 24 hours): Temp Pulse Resp BP Pulse Ox 97.9 F 79 20 155/81 H 97 12/08/18 15:00 12/08/18 15:42 12/08/18 15:00 12/08/18 15:00 12/08/18 15:00 - Medications Medications: Current Medications Acetaminophen (Tylenol 325mg Tab) 650 mg PO Q6 PRN PRN Reason: Headache Carvedilol (Coreg) 6.25 mg PO BID [facility] Last Admin: 12/08/18 18:48 Dose: 6.25 mg Clopidogrel Bisulfate (Plavix) 75 mg PO DAILY [facility] Last Admin: 12/08/18 09:31 Dose: 75 mg Dextrose (Dextrose 50% Inj) 0 ml IV STAT PRN; Protocol PRN Reason: Hypoglycemia Protocol Dextrose (Glutose 15) 0 gm PO ONCE PRN; Protocol PRN Reason: Hypoglycemia Protocol Glucagon (Glucagen Diagnostic Kit) 0 mg IM STAT PRN; Protocol PRN Reason: Hypoglycemia Protocol Dextrose (Dextrose 5% In Water 1000 Ml) 1,000 mls @ 0 mls/hr IV .Q0M PRN; Protocol PRN Reason: Hypoglycemia Protocol Insulin Human Regular (Novolin R) 0 unit SC ACHS [facility]; Protocol Last Admin: 12/08/18 18:48 Dose: Not Given Losartan Potassium (Cozaar) 50 mg PO DAILY [facility] Last Admin: 12/08/18 09:31 Dose: 50 mg Rosuvastatin Calcium (Crestor) 10 mg PO HS [facility] Last Admin: 12/07/18 21:46 Dose: 10 mg - Labs Labs: 12/08/18 08:26 12/08/18 08:26
[2018-12-09 06:48] LABS: INR 1.1; PROTHROMBIN TIME 11.9 SECONDS (9.7-12.2)
[2018-12-09 06:49] LABS: BASO % 0.5 % (0.0-2.0); EOS # 0.1 K/uL (0.0-0.7); EOS % 1.1 % (0.0-4.0); HEMOGLOBIN 12.5 g/dL (11.0-16.0); LYMPH # 2.3 K/uL (1.0-4.3); MEAN CELL VOLUME 84.8 fL (81.0-99.0); MEAN CORPUSCULAR HEMOGLOBIN 27.5 pg (27.0-31.0); MEAN CORPUSCULAR HGB CONC 32.4 g/dL (33.0-37.0); MEAN PLATELET VOLUME 9.4 fL (7.2-11.7); MONO # 0.3 K/uL (0.0-0.8); MONO % 5.2 % (0.0-10.0); NEUT # 3.1 K/uL (1.8-7.0); NEUT % 53.2 % (50.0-75.0); RBC 4.55 Mil/uL (3.80-5.20); RED CELL DISTRIBUTION WIDTH 14.1 % (11.5-14.5); WHITE BLOOD COUNT 5.8 K/uL (4.8-10.8)
[2018-12-09 06:59] LABS: ALB/GLOB RATIO 1.5 (1.0-2.1); ALBUMIN 4.5 g/dL (3.5-5.0); ALT/SGPT 42 U/L (9-52); AST/SGOT 44 U/L (14-36); BLOOD UREA NITROGEN 11 mg/dL (7-17); CALCIUM 9.1 mg/dl (8.6-10.4); GFR NON-AFRICAN AMERICAN > 60
[2018-12-09] MEDS ORDERED: Iodixanol 320 MG/ML 200 ML BOTTLE IV ONE (07:11)
[2018-12-09] MEDS ORDERED: Midazolam 2 MG/2 ML VIAL ONE (07:11)
[2018-12-09] MEDS ORDERED: Labetalol 5mg/ml (4ml) ONE (07:56)
[2018-12-09] MEDS ORDERED: DiphenhydrAMINE 50 mg/ml Inj IVP ONE (08:00)
[2018-12-09] MEDS ORDERED: Enalaprilat 2.5 MG/2 ML ONE (08:08)
[2018-12-09] MEDS ORDERED: Sodium Chloride 0.45% 1,000 ML IV SCH (08:30)
[2018-12-09] MEDS: (Novolin R) Insulin Human Regular 100 units/ml vial SC SCH ×4 (08:57→21:38)
--- NOTE | 2018-12-09 09:40 | CARD ---
APPROVED REPORT Date of service: 12/06/2018 EKG Measurement Heart [id number] <Conclusion> Normal sinus rhythm T wave abnormality, consider inferior ischemia T wave abnormality, consider anterolateral ischemia Abnormal ECG
--- NOTE | 2018-12-09 09:43 | CARD ---
APPROVED REPORT Date of service: 12/06/2018 EKG Measurement Heart [id number] <Conclusion> Normal sinus rhythm Possible Left atrial enlargement T wave abnormality, consider inferior ischemia T wave abnormality, consider anterolateral ischemia Abnormal ECG
--- NOTE | 2018-12-09 10:09 | CP.PCM.PN ---
<Angeles Robb - Last Filed: 12/09/18 15:18> Subjective - Date & Time of Evaluation Date of Evaluation: 12/09/18 Time of Evaluation: 10:05 - Subjective Subjective: Angeles Robb PGY1 Progress Note for Dr. Kuhn Patient was examined at bedside this morning. She reports improvement in her dyspnea and chest pain. She denies any fever, chills, abdominal pain, nausea, vomiting, diarrhea, dysuria. Objective - Vital Signs/Intake and Output Vital Signs (last 24 hours): Temp Pulse Resp BP Pulse Ox 98.1 F 81 20 148/79 96 12/09/18 06:30 12/09/18 06:30 12/09/18 06:30 12/09/18 06:30 12/09/18 06:30 - Medications Medications: Current Medications Acetaminophen (Tylenol 325mg Tab) 650 mg PO Q6 PRN PRN Reason: Headache Carvedilol (Coreg) 6.25 mg PO BID [facility] Last Admin: 12/08/18 18:48 Dose: 6.25 mg Clopidogrel Bisulfate (Plavix) 75 mg PO DAILY [facility] Last Admin: 12/08/18 09:31 Dose: 75 mg Dextrose (Dextrose 50% Inj) 0 ml IV STAT PRN; Protocol PRN Reason: Hypoglycemia Protocol Dextrose (Glutose 15) 0 gm PO ONCE PRN; Protocol PRN Reason: Hypoglycemia Protocol Glucagon (Glucagen Diagnostic Kit) 0 mg IM STAT PRN; Protocol PRN Reason: Hypoglycemia Protocol Dextrose (Dextrose 5% In Water 1000 Ml) 1,000 mls @ 0 mls/hr IV .Q0M PRN; Protocol PRN Reason: Hypoglycemia Protocol Sodium Chloride (Sodium Chloride 0.45%) 1,000 mls @ 60 mls/hr IV .[id number] [facility] Stop: 12/10/18 01:09 Last Admin: 12/09/18 09:00 Dose: 60 mls/hr Insulin Human Regular (Novolin R) 0 unit SC ACHS [facility]; Protocol Last Admin: 12/09/18 08:57 Dose: Not Given Losartan Potassium (Cozaar) 50 mg PO DAILY [facility] Last Admin: 12/08/18 09:31 Dose: 50 mg Rosuvastatin Calcium (Crestor) 10 mg PO HS [facility] Last Admin: 12/08/18 21:51 Dose: 10 mg - Labs Labs: 12/09/18 06:38 12/09/18 06:38 PT 11.9 SECONDS (9.7-12.2) 12/09/18 06:38 INR 1.1 12/09/18 06:38 - Constitutional Appears: Well, No Acute Distress - Head Exam Head Exam: ATRAUMATIC, NORMOCEPHALIC - Eye Exam Eye Exam: EOMI, Normal appearance, PERRL Pupil Exam: NORMAL ACCOMODATION - ENT Exam ENT Exam: Mucous Membranes Moist - Respiratory Exam Respiratory Exam: Clear to Ausculation Bilateral, NORMAL BREATHING PATTERN. absent: Rhonchi, Wheezes, Stridor - Cardiovascular Exam Cardiovascular Exam: REGULAR RHYTHM, +S1, +S2. absent: Gallop, Rubs, Murmur - GI/Abdominal Exam GI & Abdominal Exam: Soft, Normal Bowel Sounds. absent: Distended, Tenderness - Extremities Exam Extremities Exam: Normal Inspection. absent: Pedal Edema - Neurological Exam Neurological Exam: Alert, Awake, Oriented x3 - Psychiatric Exam Psychiatric exam: Normal Affect, Normal Mood - Skin Skin Exam: Normal Color Assessment and Plan - Assessment and Plan (Free Text) Assessment: This is a 68 year old female with past medical hx of HTN, DM, recent abnormal outpatient cardiac workup sent into ER from Dr. Cooney's office for gradual worsening chest pain, r/o ACS. Pt s/p cardiac cath 12/09/18. Plan: Unstable angina/ Chest pain r/o ACS -s/p cardiac cath 12/09/18: normal coronary arteries, no occlusion -trop negative x 4 -EKG: NSR 96 bpm with T wave inversions in inferior, anterolateral leads -lipid panel- LDL 85 -A1C 7.4 -D-dimer wnl -f/u LE dopplers -coreg 6.25mg PO BID -losartan 50mg PO daily -plavix 75mg PO dail7 -cardiology consult. Dr. Cooney. recs appreciated. HTN -Losartan 50mg PO daily -coreg 6.25mg PO BID -continue to monitor DM -hold home meds -A1C 7.4 -ISS medium -accuchecks ACHS -hypoglycemic protocol GI/DVT ppx -DVT ppx: scds -GI ppx: not indicated -PT Dispo: Patient likely to go home tomorrow, as ACS has been r/o. Unstable angina likely secondary to uncontrolled HTN. Patient seen and case discussed with Dr. Kuhn <Jose Kuhn H - Last Filed: 12/09/18 17:10> Objective - Vital Signs/Intake and Output Vital Signs (last 24 hours): Temp Pulse Resp BP Pulse Ox 97.8 F 86 20 192/101 H 95 12/09/18 16:50 12/09/18 16:50 12/09/18 16:50 12/09/18 16:50 12/09/18 16:50 Intake and Output: 12/09/18 12/09/18 06:59 18:59 Intake Total 900 Balance 900 - Medications Medications: Current Medications Acetaminophen (Tylenol 325mg Tab) 650 mg PO Q6 PRN PRN Reason: Headache Carvedilol (Coreg) 6.25 mg PO BID [facility] Last Admin: 12/09/18 17:00 Dose: 6.25 mg Clopidogrel Bisulfate (Plavix) 75 mg PO DAILY [facility] Last Admin: 12/09/18 10:38 Dose: 75 mg Dextrose (Dextrose 50% Inj) 0 ml IV STAT PRN; Protocol PRN Reason: Hypoglycemia Protocol Dextrose (Glutose 15) 0 gm PO ONCE PRN; Protocol PRN Reason: Hypoglycemia Protocol Glucagon (Glucagen Diagnostic Kit) 0 mg IM STAT PRN; Protocol PRN Reason: Hypoglycemia Protocol Dextrose (Dextrose 5% In Water 1000 Ml) 1,000 mls @ 0 mls/hr IV .Q0M PRN; Protocol PRN Reason: Hypoglycemia Protocol Sodium Chloride (Sodium Chloride 0.45%) 1,000 mls @ 60 mls/hr IV .[id number] [facility] Stop: 12/10/18 01:09 Last Admin: 12/09/18 09:00 Dose: 60 mls/hr Insulin Human Regular (Novolin R) 0 unit SC ACHS [facility]; Protocol Last Admin: 12/09/18 16:55 Dose: 6 units Losartan Potassium (Cozaar) 50 mg PO DAILY [facility] Last Admin: 12/09/18 10:38 Dose: 50 mg Rosuvastatin Calcium (Crestor) 10 mg PO HS [facility] Last Admin: 12/08/18 21:51 Dose: 10 mg - Labs Labs: 12/09/18 06:38 12/09/18 06:38 PT 11.9 SECONDS (9.7-12.2) 12/09/18 06:38 INR 1.1 02/18/19 06:38 Attending/Attestation - Attestation I have personally seen and examined this patient.: Yes I have fully participated in the care of the patient.: Yes I have reviewed all pertinent clinical information, including history, physical exam and plan: Yes Notes (Text): 12/09/18 17:09 Medical attending: Patient was seen and examined by me with the biomedical equipment tech, reviewed the above note by the resident and agree with the above. The patient came out of the cardiac labor and employment paralegal today. Per discussion with cardiology there were no acute findings on the cath. We will check echo as well as D-Dimer. If neccessary then a CTA to check for PE She currently feels well at rest Jose Kuhn
[2018-12-09 13:40] LABS: D DIMER < 200 ng/mlDDU (0-243)
[2018-12-10] MEDS: (Novolin R) Insulin Human Regular 100 units/ml vial SC SCH ×4 (09:22→21:38)
[2018-12-10 11:42] LABS: BASO # 0.1 K/uL (0.0-0.2); BASO % 0.7 % (0.0-2.0); EOS % 0.1 % (0.0-4.0); HEMOGLOBIN 11.2 g/dL (11.0-16.0); LYMPH # 2.5 K/uL (1.0-4.3); LYMPH % 23.9 % (20.0-40.0); MEAN CELL VOLUME 86.1 fL (81.0-99.0); MEAN CORPUSCULAR HEMOGLOBIN 27.7 pg (27.0-31.0); MEAN CORPUSCULAR HGB CONC 32.2 g/dL (33.0-37.0); MEAN PLATELET VOLUME 10.5 fL (7.2-11.7); MONO # 0.6 K/uL (0.0-0.8); MONO % 5.5 % (0.0-10.0); NEUT # 7.3 K/uL (1.8-7.0); NEUT % 69.8 % (50.0-75.0); RBC 4.03 Mil/uL (3.80-5.20); RED CELL DISTRIBUTION WIDTH 14.4 % (11.5-14.5)
[2018-12-10 11:52] LABS: WHITE BLOOD COUNT 10.4 K/uL (4.8-10.8)
[2018-12-10 12:03] LABS: ALB/GLOB RATIO 1.7 (1.0-2.1); ALBUMIN 4.3 g/dL (3.5-5.0); ALT/SGPT 31 U/L (9-52); AST/SGOT 36 U/L (14-36); BLOOD UREA NITROGEN 13 mg/dL (7-17); CALCIUM 9.1 mg/dl (8.6-10.4); GFR NON-AFRICAN AMERICAN > 60
--- NOTE | 2018-12-10 12:47 | CP.PCM.PN ---
<Olvin Nguyen - Last Filed: 12/10/18 16:03> Subjective - Date & Time of Evaluation Date of Evaluation: 12/10/18 Time of Evaluation: 09:00 - Subjective Subjective: PGY1 Medicine progress note for Dr. Friedman Pt seen and examined at bedside. Pt is resting comfortably. No acute events overnight. Pt has no complaints at this time. She denies any fever, chills, chest pain, sob, abdominal pain, nausea, vomiting, diarrhea, dysuria, lightheadedness, dizziness, leg pain or swelling. She endorses a history of ovarian CA in 2001 that was treated with only total hysterectomy and bilateral oopherectomy. She also endorses a history of asthma. Objective - Vital Signs/Intake and Output Vital Signs (last 24 hours): Temp Pulse Resp BP Pulse Ox 99.8 F H 75 18 156/80 H 100 12/10/18 08:00 12/10/18 10:00 12/10/18 08:00 12/10/18 08:00 12/10/18 08:00 - Medications Medications: Current Medications Acetaminophen (Tylenol 325mg Tab) 650 mg PO Q6 PRN PRN Reason: Headache Carvedilol (Coreg) 6.25 mg PO BID [facility] Last Admin: 12/10/18 09:22 Dose: 6.25 mg Clopidogrel Bisulfate (Plavix) 75 mg PO DAILY [facility] Last Admin: 12/10/18 09:23 Dose: 75 mg Dextrose (Dextrose 50% Inj) 0 ml IV STAT PRN; Protocol PRN Reason: Hypoglycemia Protocol Dextrose (Glutose 15) 0 gm PO ONCE PRN; Protocol PRN Reason: Hypoglycemia Protocol Glucagon (Glucagen Diagnostic Kit) 0 mg IM STAT PRN; Protocol PRN Reason: Hypoglycemia Protocol Dextrose (Dextrose 5% In Water 1000 Ml) 1,000 mls @ 0 mls/hr IV .Q0M PRN; Bhavin col PRN Reason: Hypoglycemia Protocol Insulin Human Regular (Novolin R) 0 unit SC ACHS [facility]; Protocol Last Admin: 12/10/18 11:30 Dose: 3 units Losartan Potassium (Cozaar) 50 mg PO DAILY [facility] Last Admin: 12/10/18 09:22 Dose: 50 mg Potassium Chloride (K-Dur 20 Meq Er Tab) 40 meq PO ONCE ONE Stop: 12/11/18 12:44 Rosuvastatin Calcium (Crestor) 10 mg PO HS [facility] Last Admin: 12/09/18 21:41 Dose: 10 mg - Labs Labs: 12/10/18 11:32 12/10/18 11:32 PT 11.9 SECONDS (9.7-12.2) 12/09/18 06:38 INR 1.1 12/09/18 06:38 - Additional Findings Additional findings: - Constitutional Appears: Well, No Acute Distress - Head Exam Head Exam: ATRAUMATIC, NORMOCEPHALIC - Eye Exam Eye Exam: EOMI, Normal appearance, PERRL Pupil Exam: NORMAL ACCOMODATION - ENT Exam ENT Exam: Mucous Membranes Moist - Respiratory Exam Respiratory Exam: Clear to Ausculation Bilateral, NORMAL BREATHING PATTERN. absent: Rhonchi, Wheezes, Stridor - Cardiovascular Exam Cardiovascular Exam: REGULAR RHYTHM, +S1, +S2. absent: Gallop, Rubs, Murmur - GI/Abdominal Exam GI & Abdominal Exam: Soft, Normal Bowel Sounds. absent: Distended, Tenderness - Extremities Exam Extremities Exam: Nontender, no swelling, no erythema, no warmth. absent: Pedal Edema - Neurological Exam Neurological Exam: Alert, Awake, Oriented x3 - Psychiatric Exam Psychiatric exam: Normal Affect, Normal Mood - Skin Skin Exam: Normal Color Assessment and Plan - Assessment and Plan (Free Text) Assessment: This is a 68 year old female with past medical hx of HTN, DM, asthma, ovarian ca 2001 treated with total hysterectomy and bilateral oopherect daya, recent abnormal outpatient cardiac workup sent into ER from Dr. Cooney's office for gradual worsening chest pain, r/o ACS. Pt s/p cardiac cath 12/09/18. Plan: Chest pain dyspnea, likely unstable angina r/o PE S/p cardiac cath 12/09/18: normal coronary arteries, no occlusion Trop negative x 4 EKG: NSR 96 bpm with T wave inversions in inferior, anterolateral leads Lipid panel- LDL 85 A1C 7.4 D-dimer wnl Lower extremity venous dopplers are prelim negative. F/u full report Coreg 6.25mg PO BID Losartan 50mg PO daily Plavix 75mg PO daily as pt is allergic to asa Cardiology consult. Dr. Cooney. recs appreciated. Discussed with Dr. Cooney, who request Chest CTA to r/o PE, and echocardiogram Pt to receive Solumedrol 125 mg IV, pepcid 20 mg IV, Benadryl 50 mg IV HTN Losartan 50mg PO daily Coreg 6.25mg PO BID Continue to monitor DM Hold home meds; including metformin Pt instructed to not take metformin for 48 hour after Chest CTA A1C 7.4 ISS medium Accuchecks ACHS Hypoglycemic protocol GI/DVT ppx DVT ppx: scds GI ppx: not indicated PT Dispo: F/u PE study, lower extremity doppler official report, and echocardiogram Case discussed with Dr. Friedman <Krissy Friedman - Last Filed: 12/10/18 18:05> Objective - Vital Signs/Intake and Output Vital Signs (last 24 hours): Temp Pulse Resp BP Pulse Ox 97.9 F 72 20 160/82 H 98 12/10/18 15:00 12/10/18 15:00 12/10/18 15:00 12/10/18 15:00 12/10/18 15:00 - Medications Medications: Current Medications Acetaminophen (Tylenol 325mg Tab) 650 mg PO Q6 PRN PRN Reason: Headache Carvedilol (Coreg) 6.25 mg PO BID [facility] Last Admin: 12/10/18 09:22 Dose: 6.25 mg Clopidogrel Bisulfate (Plavix) 75 mg PO DAILY [facility] Last Admin: 12/10/18 09:23 Dose: 75 mg Dextrose (Dextrose 50% Inj) 0 ml IV STAT PRN; Protocol PRN Reason: Hypoglycemia Protocol Dextrose (Glutose 15) 0 gm PO ONCE PRN; Protocol PRN Reason: Hypoglycemia Protocol Diphenhydramine HCl (Benadryl) 50 mg IVP ONCE PRN PRN Reason: Give prior to CTA Last Admin: 12/10/18 17:05 Dose: 50 mg Famotidine (Pepcid) 20 mg IVP ONCE PRN PRN Reason: Give prior to CTA Last Admin: 12/10/18 17:05 Dose: 20 mg Glucagon (Glucagen Diagnostic Kit) 0 mg IM STAT PRN; Protocol PRN Reason: Hypoglycemia Protocol Dextrose (Dextrose 5% In Water 1000 Ml) 1,000 mls @ 0 mls/hr IV .Q0M PRN; Protocol PRN Reason: Hypoglycemia Protocol Insulin Human Regular (Novolin R) 0 unit SC [facility]; Protocol Last Admin: 12/10/18 17:42 Dose: 3 units Losartan Potassium (Cozaar) 50 mg PO DAILY [facility] Last Admin: 12/10/18 09:22 Dose: 50 mg Potassium Chloride (K-Dur 20 Meq Er Tab) 40 meq PO ONCE ONE Stop: 12/11/18 13:01 Rosuvastatin Calcium (Crestor) 10 mg PO HS [facility] Last Admin: 12/09/18 21:41 Dose: 10 mg - Labs Labs: 12/10/18 11:32 12/10/18 11:32 PT 11.9 SECONDS (9.7-12.2) 12/09/18 06:38 INR 1.1 12/09/18 06:38 Attending/Attestation - Attestation I have personally seen and examined this patient.: Yes I have fully participated in the care of the patient.: Yes I have reviewed all pertinent clinical information, including history, physical exam and plan: Yes Notes (Text): seen and examined by me. Patient has history of sdortness of breath on ambulation. She also has palpitation on ambulation. has some right calf pain. Brought in for chest pain. She had cardiac cath yesterday . Normal coronaries. CTA chest is planned for today due to avoid too much contrast . History of shell fis=h allergy. premedicated before her CTA venous doppler done. report pending. follow CTA and venous doppler reports d/w patient and her daughter at bedside.Encouraged to have oral liquids possible discharge tomorrow morning .Patient was asked not to take metformin next 48hours
[2018-12-10] MEDS ORDERED: DiphenhydrAMINE 50 mg/ml Inj IVP PRN (14:34)
[2018-12-10 15:44] VITALS: RESP 20
[2018-12-10] MEDS ORDERED: Iohexol 350mg/ml 100 ML ONE (16:12)
--- NOTE | 2018-12-10 17:58 | CT ---
Date of service: 12/10/2018 PROCEDURE: CT Chest with contrast (Pulmonary Angiogram) HISTORY: r/o PE COMPARISON: Chest radiograph from 12/06/2018. TECHNIQUE: Axial computed tomography images were obtained of the chest in the pulmonary arterial phase of enhancement. Coronal and sagittal reformatted images were created and reviewed. Intravenous contrast dose: 100 mL Visipaque 320 Radiation dose: Total exam DLP = 538.72 mGy-cm. This CT exam was performed using one or more of the following dose reduction techniques: Automated exposure control, adjustment of the mA and/or kV according to patient size, and/or use of iterative reconstruction technique. FINDINGS: PULMONARY ARTERIES: There are no filling defects in the pulmonary arteries to suggest acute pulmonary embolism. AORTA: No acute findings. No thoracic aortic aneurysm. No aortic atherosclerotic calcification or mural plaque present. LUNGS: The lungs are well inflated and clear. No nodule, mass or pulmonary consolidation. PLEURAL SPACES: No effusion or pneumothorax. HEART: No cardiomegaly. No significant pericardial effusion. LYMPH NODES: No pathologic axillary, mediastinal or hilar lymphadenopathy. BONES, CHEST WALL: There are advanced multilevel degenerative changes in the spine with endplate sclerosis.. No fracture or destructive lesion OTHER FINDINGS: There is a 2.1 x 1.4 cm spiculated mass in the superior right breast with diffuse skin thickening. IMPRESSION: 1. No CTA evidence for acute pulmonary embolism. 2. Clear lungs. 3. 2.1 x 1.4 cm spiculated mass in the superior right breast with diffuse skin thickening highly concerning for carcinoma. Correlation with diagnostic mammogram and ultrasound examination is recommended for further characterization. Important findings were discussed with nurse Freedom Sky on 12/10/2018 at 5:50 p.m.
--- NOTE | 2018-12-11 07:27 | CP.PCM.PN ---
Subjective - Date & Time of Evaluation Date of Evaluation: 12/09/18 Time of Evaluation: 18:25 - Subjective Subjective: Patient with no cardiac events Review of Systems - Review of Systems All systems: reviewed and no additional remarkable complaints except Review of Systems: as per HPI Physical Exam - Constitutional Appears: Non-toxic, No Acute Distress - Head Exam Head Exam: ATRAUMATIC, NORMAL INSPECTION, NORMOCEPHALIC - Eye Exam Eye Exam: EOMI, Normal appearance, PERRL Pupil Exam: NORMAL ACCOMODATION - ENT Exam ENT Exam: Mucous Membranes Moist, Normal Exam - Neck Exam Neck exam: Positive for: Full Rom, Normal Inspection. Negative for: Tenderness - Respiratory Exam Respiratory Exam: Clear to Auscultation Bilateral, NORMAL BREATHING PATTERN. absent: Accessory Muscle Use, Rales, Rhonchi, Wheezes, Respiratory Distress, Stridor - Cardiovascular Exam Cardiovascular Exam: Tachycardia, +S1, +S2 - GI/Abdominal Exam GI & Abdominal Exam: Normal Bowel Sounds, Soft. absent: Distended, Firm, Guarding, Rebound, Rigid, Tenderness - Extremities Exam Extremities exam: Positive for: normal capillary refill, normal inspection, pedal pulses present. Negative for: calf tenderness, pedal edema - Back Exam Back exam: NORMAL INSPECTION - Neurological Exam Neurological exam: Alert, Oriented x3 - Psychiatric Exam Psychiatric exam: Anxious, Normal Affect - Skin Skin Exam: Dry, Intact, Normal Color, Warm Assessment & Plan - Assessment and Plan (Free Text) Assessment: 68 year old female with pmhx of HTN, DM, recent abnormal outpatient cardiac workup brought to ED from Dr. Cooney's office for gradual worsening chest pain, r/o ACS. Plan: Stable angina Chest pain r/o ACS -trop x1 negative -f/u HANNAH panel -EKG: NSR 96 bpm with T wave inversions in inferior, anterolateral leads -f/u repeat EKG -lipid panel -thyroid panel -A1C Cardiac cath tomorrow 7am HTN -BP 160/86 -Losartan 25 mg PO daily -continue to monitor DM -hold home meds -f/u A1C -ISS medium -accuchecks ACHS -hypoglycemic protocol PPx, Diet, Disposition -DVT ppx: scds -Diet: HHD, -PT on board Objective - Vital Signs/Intake and Output Vital Signs (last 24 hours): Temp Pulse Resp BP Pulse Ox 97.9 F 74 20 163/79 H 95 12/10/18 23:20 12/10/18 23:20 12/10/18 23:20 12/10/18 23:20 12/10/18 23:20 - Medications Medications: Current Medications Acetaminophen (Tylenol 325mg Tab) 650 mg PO Q6 PRN PRN Reason: Headache Carvedilol (Coreg) 6.25 mg PO BID [facility] Last Admin: 12/10/18 18:03 Dose: 6.25 mg Clopidogrel Bisulfate (Plavix) 75 mg PO DAILY [facility] Last Admin: 12/10/18 09:23 Dose: 75 mg Dextrose (Dextrose 50% Inj) 0 ml IV STAT PRN; Protocol PRN Reason: Hypoglycemia Protocol Dextrose (Glutose 15) 0 gm PO ONCE PRN; Protocol PRN Reason: Hypoglycemia Protocol Diphenhydramine HCl (Benadryl) 50 mg IVP ONCE PRN PRN Reason: Give prior to CTA Last Admin: 12/10/18 17:05 Dose: 50 mg Famotidine (Pepcid) 20 mg IVP ONCE PRN PRN Reason: Give prior to CTA Last Admin: 12/10/18 17:05 Dose: 20 mg Glucagon (Glucagen Diagnostic Kit) 0 mg IM STAT PRN; Protocol PRN Reason: Hypoglycemia Protocol Dextrose (Dextrose 5% In Water 1000 Ml) 1,000 mls @ 0 mls/hr IV .Q0M PRN; Protocol PRN Reason: Hypoglycemia Protocol Insulin Human Regular (Novolin R) 0 unit SC ACHS [facility]; Protocol Last Admin: 12/10/18 21:38 Dose: Not Given Losartan Potassium (Cozaar) 50 mg PO DAILY [facility] Last Admin: 12/10/18 09:22 Dose: 50 mg Potassium Chloride (K-Dur 20 Meq Er Tab) 40 meq PO ONCE ONE Stop: 12/11/18 13:01 Rosuvastatin Calcium (Crestor) 10 mg PO HS [facility] Last Admin: 12/10/18 21:07 Dose: 10 mg - Labs Labs: 12/10/18 11:32 12/10/18 11:32 PT 11.9 SECONDS (9.7-12.2) 12/09/18 06:38 INR 1.1 12/09/18 06:38
--- NOTE | 2018-12-11 07:29 | CP.PCM.PN ---
Subjective - Date & Time of Evaluation Date of Evaluation: 12/10/18 Time of Evaluation: 20:10 - Subjective Subjective: Patient seen and evaluated States there is improvement in chest pain and dyspnea Patient with no cardiac events Review of Systems - Review of Systems All systems: reviewed and no additional remarkable complaints except Review of Systems: as per HPI Physical Exam - Constitutional Appears: Non-toxic, No Acute Distress - Head Exam Head Exam: ATRAUMATIC, NORMAL INSPECTION, NORMOCEPHALIC - Eye Exam Eye Exam: EOMI, Normal appearance, PERRL Pupil Exam: NORMAL ACCOMODATION - ENT Exam ENT Exam: Mucous Membranes Moist, Normal Exam - Neck Exam Neck exam: Positive for: Full Rom, Normal Inspection. Negative for: Tenderness - Respiratory Exam Respiratory Exam: Clear to Auscultation Bilateral, NORMAL BREATHING PATTERN. absent: Accessory Muscle Use, Rales, Rhonchi, Wheezes, Respiratory Distress, Stridor - Cardiovascular Exam Cardiovascular Exam: Tachycardia, +S1, +S2 - GI/Abdominal Exam GI & Abdominal Exam: Normal Bowel Sounds, Soft. absent: Distended, Firm, Guarding, Rebound, Rigid, Tenderness - Extremities Exam Extremities exam: Positive for: normal capillary refill, normal inspection, pedal pulses present. Negative for: calf tenderness, pedal edema - Back Exam Back exam: NORMAL INSPECTION - Neurological Exam Neurological exam: Alert, Oriented x3 - Psychiatric Exam Psychiatric exam: Anxious, Normal Affect - Skin Skin Exam: Dry, Intact, Normal Color, Warm Assessment & Plan - Assessment and Plan (Free Text) Assessment: 68 year old female with pmhx of HTN, DM, recent abnormal outpatient cardiac workup brought to ED from Dr. Cooney's office for gradual worsening chest pain, r/o ACS. Plan: Stable angina Chest pain r/o ACS Non Obstructive Coronaries and Normal EF HTN -Losartan 25 mg PO daily -continue to monitor DM -accuchecks ACHS -hypoglycemic protocol PPx, Diet, Disposition -DVT ppx: scds -Diet: HHD, -PT on board CT scan chest suspecious for Breast Cancer. Further eveluation and management as per Medicine Objective - Vital Signs/Intake and Output Vital Signs (last 24 hours): Temp Pulse Resp BP Pulse Ox 97.9 F 74 20 163/79 H 95 12/10/18 23:20 12/10/18 23:20 12/10/18 23:20 12/10/18 23:20 12/10/18 23:20 - Medications Medications: Current Medications Acetaminophen (Tylenol 325mg Tab) 650 mg PO Q6 PRN PRN Reason: Headache Carvedilol (Coreg) 6.25 mg PO BID [facility] Last Admin: 12/10/18 18:03 Dose: 6.25 mg Clopidogrel Bisulfate (Plavix) 75 mg PO DAILY [facility] Last Admin: 12/10/18 09:23 Dose: 75 mg Dextrose (Dextrose 50% Inj) 0 ml IV STAT PRN; Protocol PRN Reason: Hypoglycemia Protocol Dextrose (Glutose 15) 0 gm PO ONCE PRN; Protocol PRN Reason: Hypoglycemia Protocol Diphenhydramine HCl (Benadryl) 50 mg IVP ONCE PRN PRN Reason: Give prior to CTA Last Admin: 12/10/18 17:05 Dose: 50 mg Famotidine (Pepcid) 20 mg IVP ONCE PRN PRN Reason: Give prior to CTA Last Admin: 12/10/18 17:05 Dose: 20 mg Glucagon (Glucagen Diagnostic Kit) 0 mg IM STAT PRN; Protocol PRN Reason: Hypoglycemia Protocol Dextrose (Dextrose 5% In Water 1000 Ml) 1,000 mls @ 0 mls/hr IV .Q0M PRN; Protocol PRN Reason: Hypoglycemia Protocol Insulin Human Regular (Novolin R) 0 unit SC [facility]; Protocol Last Admin: 12/10/18 21:38 Dose: Not Given Losartan Potassium (Cozaar) 50 mg PO DAILY [facility] Last Admin: 12/10/18 09:22 Dose: 50 mg Potassium Chloride (K-Dur 20 Meq Er Tab) 40 meq PO ONCE ONE Stop: 12/11/18 13:01 Rosuvastatin Calcium (Crestor) 10 mg PO HS [facility] Last Admin: 12/10/18 21:07 Dose: 10 mg - Labs Labs: 12/10/18 11:32 12/10/18 11:32 PT 11.9 SECONDS (9.7-12.2) 12/09/18 06:38 INR 1.1 12/09/18 06:38
[2018-12-11 07:41] LABS: BASO % 0.1 % (0.0-2.0); HEMOGLOBIN 11.4 g/dL (11.0-16.0); LYMPH # 1.6 K/uL (1.0-4.3); MEAN CELL VOLUME 85.5 fL (81.0-99.0); MEAN CORPUSCULAR HEMOGLOBIN 27.8 pg (27.0-31.0); MEAN CORPUSCULAR HGB CONC 32.6 g/dL (33.0-37.0); MEAN PLATELET VOLUME 10.5 fL (7.2-11.7); MONO # 0.3 K/uL (0.0-0.8); MONO % 2.9 % (0.0-10.0); NEUT # 9.6 K/uL (1.8-7.0); RBC 4.1 Mil/uL (3.80-5.20); RED CELL DISTRIBUTION WIDTH 14.6 % (11.5-14.5); WHITE BLOOD COUNT 11.5 K/uL (4.8-10.8)
[2018-12-11 07:57] LABS: ALB/GLOB RATIO 1.6 (1.0-2.1); ALBUMIN 4.4 g/dL (3.5-5.0); ALT/SGPT 42 U/L (9-52); AST/SGOT 32 U/L (14-36); BLOOD UREA NITROGEN 16 mg/dL (7-17); CALCIUM 9.2 mg/dl (8.6-10.4); GFR NON-AFRICAN AMERICAN > 60
[2018-12-11] MEDS: (Novolin R) Insulin Human Regular 100 units/ml vial SC SCH ×2 (08:34→12:26)
[2018-12-11 10:56] VITALS: O2SAT 97
[2018-12-11 11:01] VITALS: PULSE 75
[2018-12-11] MEDS ORDERED: Potassium Chloride 20 mEq ER Tab PO ONE (13:00)
--- NOTE | 2018-12-11 13:01 | CARDCATH ---
PROCEDURE DATE: 12/09/2018 PROCEDURES: 1. Left heart catheterization. 2. Coronary angiogram. 3. Aortic root angiogram. CLINICAL INDICATIONS: 1. Exertional chest pain. 2. Hypertension. 3. Abnormal stress test. REFERRING PHYSICIAN: Carlos Alberto Holland MD PERFORMING PHYSICIAN: Toby Cooney MD DESCRIPTION OF PROCEDURE: After informed consent, the patient was prepped and draped in the usual sterile fashion. A 2% lidocaine was given in the right groin for local anesthesia. Using micropuncture technique, 6-[place]ib[place] sheath was introduced through right common femoral artery. THE PATIENT HAS HISTORY OF CONTRAST ALLERGY. The patient was premedicated with Solu-Medrol, Benadryl and Pepcid. A 6-[place]ib[place] JL4 diagnostic catheter engaged into left main coronary artery. Contrast injected and left coronary angiogram was done. Then the catheter was changed to JR4 6-[place]ib[place] diagnostic catheter. JR4 catheter inserted into left ventricle across the aortic valve. LVEDP measured. Contrast injected and LV angiogram was done. The catheter was pulled back across the aortic valve. Gradient across the aortic valve was measured. The same catheter engaged into right coronary artery. Contrast injected and right coronary angiogram was done. This catheter was exchanged to 6-[place]ib[place] angled pigtail catheter. Pigtail catheter inserted into ascending aorta. Contrast injected and ascending root aortogram was performed. The patient tolerated the procedure well. Postprocedure, Perclose suture deployed in the right groin with excellent hemostasis. FINDINGS: 1. Left main coronary artery is patent. 2. LAD and diagonal branches are patent. 3. Left circumflex and obtuse marginal branches are patent. 4. Right coronary artery is dominant and patent. 5. LV ejection fraction is approximately 60%. No wall motion abnormalities noted. EDP is 26. No gradient across the aortic valve. 6. Aortic root angiogram demonstrated no aortic aneurysm and no aortic dissections. The patient tolerated the procedure well. The patient will be transferred back to the telemetry floor for further observation. Toby Cooney MD
--- NOTE | 2018-12-11 13:04 | VASCLAB ---
Date of service: 12/10/2018 PROCEDURE: Lower Extremity Venous Duplex Exam. HISTORY: as per Flexographic Press Set Up Operator, s/p cath in pt with dyspnea PRIORS: None. TECHNIQUE: Bilateral common femoral, femoral, popliteal and posterior tibial, peroneal and great saphenous veins were evaluated. Flow was assessed with color Doppler, compressibility, assessment of phasic flow and augmentation response. Report prepared by Ghanshyam Stokes, BS, RVT FINDINGS: RIGHT: 1. Common Femoral Vein: 1.1. Compressibility - Fully compressible: Thrombus - None : Flow - Phasic: Augmentation -Normal: Reflux - None. 2. Femoral Vein: 2.1. Compressibility - Fully compressible: Thrombus - None : Flow - Phasic: Augmentation -Normal: Reflux - None. 3. Popliteal Vein: 3.1. Compressibility - Fully compressible: Thrombus - None : Flow - Phasic: Augmentation -Normal: Reflux - None. 4. Posterior Tibial Vein: 4.1. Compressibility - Fully compressible: Thrombus - None: Flow - Phasic: Augmentation -Normal: Reflux - None. 5. Peroneal Vein: 5.1. Compressibility - Fully compressible: Thrombus - None: Flow - Phasic: Augmentation -Normal: Reflux - None. 6. Great Saphenous Vein: 6.1. Compressibility - Fully compressible: Thrombus - None: Flow - Phasic: Augmentation - Normal: Reflux - None. LEFT: 1. Common Femoral Vein: 1.1. Compressibility - Fully compressible: Thrombus - None: Flow - Phasic: Augmentation -Normal: Reflux - None. 2. Femoral Vein: 2.1. Compressibility - Fully compressible: Thrombus - None: Flow - Phasic: Augmentation -Normal: Reflux - None. 3. Popliteal Vein: 3.1. Compressibility - Fully compressible: Thrombus - None : Flow - Phasic: Augmentation -Normal: Reflux - None. 4. Posterior Tibial Vein: 4.1. Compressibility - Fully compressible: Thrombus - None: Flow - Phasic: Augmentation -Normal: Reflux - None. 5. Peroneal Vein: 5.1. Compressibility - Fully compressible: Thrombus - None: Flow - Phasic: Augmentation -Normal: Reflux - None. 6. Great Saphenous Vein: 6.1. Compressibility - Fully compressible: Thrombus - None: Flow - Phasic: Augmentation - Normal: Reflux - Yes. OTHER FINDINGS: Right: None significant. Left: Anechoic non vascularized mass noted behind the left knee. IMPRESSION: Right: No evidence of deep or superficial vein thrombosis of the right lower extremity. Normal valve function noted of the right side. Left: No evidence of deep or superficial vein thrombosis of the left lower extremity. Valvular incompetence of the left greater saphenous vein.
--- NOTE | 2018-12-11 15:12 | CP.PCM.DIS ---
Provider - Provider Date of Admission: 12/06/18 15:33 Attending physician: Krissy Friedman MD Consults: 12/06/18 17:13 Cardiology Consult Stat Comment: Consulting Provider: Toby Cooney Consulting Physician: Toby Cooney Reason for Consult: chest pain, abnormal ekg 12/11/18 06:47 Cardiology Consult Routine Comment: Please notify Dr. Garg Consulting Provider: Ralph Garg Consulting Physician: Ralph Garg Reason for Consult: Cardiology coverage. I am out of town till December 20 Time Spent in preparation of Discharge (in minutes): 35 Diagnosis - Discharge Diagnosis (1) Chest pain Status: Resolved (2) Dyspnea Status: Resolved (3) HTN (hypertension) Status: Chronic (4) Diabetes Status: Chronic (5) Breast mass Status: Acute Hospital Course - Lab Results Lab Results: Most Recent Lab Values WBC 11.5 K/uL (4.8-10.8) H 12/11/18 07:16 RBC 4.10 Mil/uL (3.80-5.20) 12/11/18 07:16 Hgb 11.4 g/dL (11.0-16.0) 12/11/18 07:16 Hct 35.1 % (34.0-47.0) 12/11/18 07:16 MCV 85.5 fL (81.0-99.0) 12/11/18 07:16 MCH 27.8 pg (27.0-31.0) 12/11/18 07:16 MCHC 32.6 g/dL (33.0-37.0) L 12/11/18 07:16 RDW 14.6 % (11.5-14.5) H 12/11/18 07:16 Plt Count 310 K/uL (130-400) 12/11/18 07:16 MPV 10.5 fL (7.2-11.7) 12/11/18 07:16 Neut % (Auto) 83.0 % (50.0-75.0) H 12/11/18 07:16 Lymph % (Auto) 14.0 % (20.0-40.0) L 12/11/18 07:16 [place] % (Auto) 2.9 % (0.0-10.0) 12/11/18 07:16 Eos % (Auto) 0.0 % (0.0-4.0) 12/11/18 07:16 Baso % (Auto) 0.1 % (0.0-2.0) 12/11/18 07:16 Neut # (Auto) 9.6 K/uL (1.8-7.0) H 12/11/18 07:16 Lymph # (Auto) 1.6 K/uL (1.0-4.3) 12/11/18 07:16 [place] # (Auto) 0.3 K/uL (0.0-0.8) 12/11/18 07:16 Eos # (Auto) 0.0 K/uL (0.0-0.7) 12/11/18 07:16 Baso # (Auto) 0.0 K/uL (0.0-0.2) 12/11/18 07:16 PT 11.9 SECONDS (9.7-12.2) 12/09/18 06:38 INR 1.1 12/09/18 06:38 D-Dimer, Quantitative < 200 ng/mlDDU (0-243) 12/09/18 06:38 Sodium 138 mmol/L (132-148) 12/11/18 07:16 Potassium 4.0 mmol/L (3.6-5.2) 12/11/18 07:16 Chloride 104 mmol/L (98-107) 12/11/18 07:16 Carbon Dioxide 23 mmol/L (22-30) 12/11/18 07:16 Anion Gap 15 (10-20) 12/11/18 07:16 BUN 16 mg/dL (7-17) 12/11/18 07:16 Creatinine 0.7 mg/dL (0.7-1.2) 12/11/18 07:16 Est GFR ( Amer) > 60 12/11/18 07:16 Est GFR (Non-Af Amer) > 60 12/11/18 07:16 POC Glucose (mg/dL) 277 mg/dL (65-110) H 12/11/18 11:41 Random Glucose 283 mg/dL (65-105) H 12/11/18 07:16 Hemoglobin A1c 7.4 % (4.2-6.5) H 12/06/18 22:17 Calcium 9.2 mg/dl (8.6-10.4) 12/11/18 07:16 Phosphorus 3.4 mg/dL (2.5-4.5) 12/11/18 07:16 Magnesium 1.7 mg/dL (1.6-2.3) 12/11/18 07:16 Total Bilirubin 0.4 mg/dL (0.2-1.3) 12/11/18 07:16 AST 32 U/L (14-36) 12/11/18 07:16 ALT 42 U/L (9-52) 12/11/18 07:16 Alkaline Phosphatase 78 U/L (38-126) 12/11/18 07:16 Total Creatine Kinase 186 U/L (30-135) H 12/07/18 06:46 CK-MB (Mass) 0.73 ng/mL (0.0-3.38) 12/07/18 06:46 Troponin I < 0.0120 ng/mL (0.00-0.120) 12/07/18 06:46 Total Protein 7.1 g/dL (6.3-8.3) 12/11/18 07:16 Albumin 4.4 g/dL (3.5-5.0) 12/11/18 07:16 Globulin 2.7 gm/dL (2.2-3.9) 12/11/18 07:16 Albumin/Globulin Ratio 1.6 (1.0-2.1) 12/11/18 07:16 Triglycerides 216 mg/dL (0-149) H 12/06/18 22:13 Cholesterol 123 mg/dL (0-199) 12/06/18 22:13 LDL Cholesterol Direct 85 mg/dL (0-129) 12/06/18 22:13 HDL Cholesterol 29 mg/dL (30-70) L 12/06/18 22:13 Free T4 1.08 ng/dL (0.78-2.19) 12/06/18 22:13 TSH 3rd Generation 5.11 mIU/L (0.46-4.68) H 12/06/18 22:13 - Hospital Course Hospital Course: On admission: Patient is a 68 year old female with past medical history of HTN, DM, arthritis presenting to ED from Dr. Cooney's office with chest pain that has been gradually worsening over the course of 1 month. Chest pain comes and goes, worsens with exertion. Patient states it begins in the R axillary region, worsens and radiates up with exertion, eventually traveling to chest where she feels substernal pressure. Sometimes, there is pressure sensation up to neck as well. Of note, patient states she has had outpatient cardiac workup with Dr. Cooney this past month including EKG, echo, and pharm stress test which were abnormal. She was instructed by Dr. Cooney to come to the ED for further care. She endorses substernal chest pressure currently that is mild, in no acute distress. She also endorses headache and has history of lightheadedess and pre-syncope but denies any falls or trauma. No fevers/chills, acute sob, cough, abdominal pain, n/v/d/c. 12 pt ROS reviewed and otherwise negative. Hospital course: Dr. Cooney, cardiology, consulted. Pt started on Plavix due to aspirin allergy. BP controlled with ARB. Pt started on beta dimitris as well. Cardiac cath showed normal coronary arteries. Lower extremity venous dopplers shows no evidence of DVT. Echocardiogram was ordered, reading is pending. Cardiology was concerned about PE, Chest CTA was ordered. Chest CTA showed no PE, but a 2.1 x 1.4 cm spiculated mass in the right breast suggestive of carcinoma. Due to history of contrast allergy, pt was premedicated for the cath and chest CTA with solumedr ol, pepcid and benadryl. No significant reaction to contrast noted during hospital stay. Pt Reports history of calcification in right breast which was biopsied and she had a lumpectomy in 2016. Results were negative for malignancy as per pt. She was told to follow up with yearly mammograms and has one scheduled for january 2019, last year's was normal. Pt has a history of ovarian cancer which was treated with total hysterectomy and bilateral oopherectomy. Mother had a history of breast CA x5 diagnosed at age 70, she is [address] findings were discussed with pt's PMD, Dr. Holland, who states that he will follow up with mammogram results. Pt instructed to follow up with [facility] radiology within 1 week for mammogram due to Chest CT findings. Pt was instructed to continue Metformin tomorrow due to contrast given. This is a summary of the hospital course. Please see EMR for full details. Discharge Exam - Head Exam Head Exam: ATRAUMATIC, NORMOCEPHALIC Discharge Plan - Discharge Medications Prescriptions: Carvedilol [Coreg] 6.25 mg PO BID #60 tab Clopidogrel [Plavix] 75 mg PO DAILY #30 tab Losartan [Cozaar] 50 mg PO DAILY #30 tab Rosuvastatin Calcium [Crestor] 10 mg PO HS #30 tab - Follow Up Plan Condition: FAIR Disposition: HOME/ ROUTINE Instructions: Chest Pain (DC), Carvedilol, Clopidogrel, Losartan, Rosuvastatin Additional Instructions: Pt is medically stable for discharge home as per Dr. Day. Pt will be provided with prescriptions for: Losartan 50 mg PO daily Coreg 6.25 mg PO BID Crestor 10 mg PO QHS Plavix 75 mg PO daily Pt can continue metformin tomorrow (12/12/18). Pt can continue taking Pepcid as needed. Please do not take a proton pump inhibitor such as omeprazole, pantaprozole without consulting with PMD or renewals representative as it may interfere with Plavix. Pt should follow up with [facility] Radiology within 1 week of discharge for mammogram. Dr. Holland will follow up with the results. Please ask the radiology center to send him the results. Pt should follow up with Dr. Cooney, cardiology, within 3 weeks of discharge. Please call his office to arrange an appointment. Pt should follow up with PMD within 2 weeks of discharge. Should symptoms worsen, please return to the nearest Emergency Department for further evaluation. Instructions explained to the pt, who understand and agrees with discharge plan. Referrals: Toby Cooney MD [Staff Provider] - Carlos Alberto Holland MD [Medical Doctor] -
[2018-12-11 15:32] VITALS: BP 157/77; TEMP 98
--- NOTE | 2018-12-12 06:34 | CARD ---
APPROVED REPORT Date of service: 12/11/2018 EXAM: Two-dimensional and M-mode echocardiogram with Doppler and color Doppler. INDICATION Chest Pain asthma RISK FACTORS Hypertension Diabetes 2D DIMENSIONS IVSd1.3 (0.7-1.1cm)LVDd4.3 (3.9-5.9cm) PWd1.1 (0.7-1.1cm)LA [id number] (18-58mL) LVDs2.8 (2.5-4.0cm)FS (%) 34.6 % LVEF (%)64.0 (>50%)LVEF (Bhatia's)58.36 % M-Mode DIMENSIONS Left Atrium (MM)4.02 (2.5-4.0cm)IVSd0.94 (0.7-1.1cm) Aortic Root3.01 (2.2-3.7cm)LVDd5.02 (4.0-5.6cm) Aortic Cusp Exc.2.05 (1.5-2.0cm)PWd0.92 (0.7-1.1cm) FS (%) 35 %LVDs3.27 (2.0-3.8cm) LVEF (%)64 (>50%) Mitral Valve MV E Feyxfiio09.0cm/sMV A Ublikxpq06.5cm/sE/A ratio0.6 TDI Lateral E' Peak V7.00cm/sMedial E' Peak V5.64cm/sE/Lateral E'8.7 E/Medial E'10.8 Tricuspid Valve TR Peak [id number]/sTR Peak [id number] <Conclusion> Suboptimal study Left ventricle: thickness: normal; size: normal; overall ejection fraction: 65%: diastolic filling pressures: normal Mitral valve: annulus: normal: leaflets: normal: excursion: normal; no significant trans-mitral gradient: mild incompetence: left atrium: mild diilatation Aortic valve: leaflets: mild thickening: excursion: normal; no significant trans-aortic gradient: No significant incompetence: aortic root: normal Right sided Structures: Pulmonary valve: normal; no significant incompetence; Tricuspid valve: normal; mild incompetence: Intra-cardiac hemodynamics: pulmonary systolic pressures: normal; central venous pressures: indeterminate No pericardial effusion
== END 2018-12-11 17:14 | disposition home or self-care (01) ==
LOC: C.ER 13:14 → C.9E 15:33 → C.5S 17:29 → C.6T 12-10 08:09 → C.5S 12-10 08:23 → C.6T 12-10 10:21 → C.5S 12-10 10:21 → C.6T 12-11 11:13 → C.5S 12-11 11:13
PROVIDERS: ADMIT Internal Medicine; ATTEND Internal Medicine
DX: R07.9 Chest pain, unspecified (principal); Z85.72 Personal history of non-Hodgkin lymphomas; J45.909 Unspecified asthma, uncomplicated; I10 Essential (primary) hypertension; E11.9 Type 2 diabetes mellitus without complications
CPT/HCPCS: 36415; 71045; 71275; 80053; 80061; 82550; 82553; 82948; 83036; 83735; 84100; 84439; 84443; 84484; 85025; 85378; 85610; 93005; 93306; 93458; 93567; 93970; 97162; 97530; 99152; 99153; 99285; C1758; C1760; C1769; C1887; C1893; G0378; G8978; G8979; J1200; J1644; J2250; J2930; J3010; J3475; J3480; J7030; Q9966; Q9967